=== PATIENT | male | born 1950 | race Two or more races ===

== ENCOUNTER → 2016-11-05 | Outpatient (CLI) | payer OTHER, MEDICAID | END | disposition home or self-care (01) | LOC: HDHVI->DVH 09:02 | PROVIDERS: ATTEND Internal Medicine Cardiovascular Disease | DX: R07.89 Other chest pain (principal); E11.9 Type 2 diabetes mellitus without complications | CPT/HCPCS: 93306 ==

== ENCOUNTER → 2016-11-13 | Outpatient (CLI) | payer OTHER, MEDICAID ==
[~2016-11-13] VITALS: Ht 162.6 cm; Wt 71.7 kg
[~2016-11-13] MED LIST: ADENOSINE IV STA; GIVE UN DILUTED IV STA
== END | disposition home or self-care (01) ==
LOC: HDHVI->DVH 08:18
PROVIDERS: ATTEND Internal Medicine Cardiovascular Disease
DX: Z13.6 Encounter for screening for cardiovascular disorders (principal); E11.9 Type 2 diabetes mellitus without complications; E78.00 Pure hypercholesterolemia, unspecified
CPT/HCPCS: 78452; 93017; 96374; A9500